=== PATIENT | male | born 1950 | race Caucasian/White ===

== ENCOUNTER 2025-02-10 12:55 | Outpatient (CLI) | payer MEDICARE | END 2025-02-10 12:56 | disposition home or self-care (01) | LOC: CSHULT 12:55 | PROVIDERS: ATTEND Nurse Practitioner Family | DX: M79.662 Pain in left lower leg (principal); M79.661 Pain in right lower leg; M79.89 Other specified soft tissue disorders; E11.42 Type 2 diabetes mellitus with diabetic polyneuropathy; I87.2 Venous insufficiency (chronic) (peripheral) | CPT/HCPCS: 93923 ==